=== PATIENT | female | born 1970 | race Caucasian/White ===

== ENCOUNTER 2016-12-14 08:34 | Emergency (ER) | payer OTHER ==
[~2016-12-14] VITALS: Wt 93.0 kg
[~2016-12-14 08:34] MED LIST: AZIT500T3 PO; BENA40TA41 PO; CARV25TA79 PO; CYCL-319 PO; HYDR-3672 PO; HYDR-902 PO; LEVO500T72 PO; METO10TA92 PO; ONDA4TAB14 PO; PANT40TA3 PO
[2016-12-14] MEDS ORDERED: SOD CHLORIDE 0.9% 1,000 ML IV STA (10:54)
[2016-12-14] MEDS ORDERED: ONDANSETRON 4 MG INJ IV STA (10:54)
[2016-12-14] MEDS ORDERED: HYDROmorphONE 1 MG/ML SYG IV STA ×3 (10:56→15:08)
--- NOTE | 2016-12-14 11:11 | ERD ---
ER Documentation Chief Complaint Date/Time DATE: 12/14/16 TIME: 11:07 Chief Complaint PELVIC PAIN WITH HEMATURIA HX HEMATURIA HPI Patient is a 46-year-old female who presents with 2 days of gradual onset, constant, burning pain to the suprapubic area associated with dysuria. The patient reports hematuria this morning. She also reports left-sided low back pain, a few episodes of vomiting, and 3 episodes of diarrhea. Denies fever, denies vaginal discharge. Patient states that she was unable to take her antihypertensive medication this morning due to vomiting. On further history the patient discloses that she has been treated for UTI for the last 2 weeks with 3 different antibiotics, and is currently taking Keflex. She also reports history of 2 previous kidney stones. ROS All systems reviewed and are negative except as per history of present illness. Medications Home Meds Active Scripts Ondansetron Hcl* (Zofran*) 4 Mg Tablet, 4 MG PO Q8H Y for NAUSEA AND/OR VOMITING , #15 TAB Prov:HEIKE SHAFER MD 12/14/16 Levofloxacin* (Levaquin*) 500 Mg Tablet, 500 MG PO DAILY for 10 Days, TAB Prov:HEIKE SHAFER MD 12/14/16 Hydrocodone/Acetaminophen ([place] 5-325 Tablet) 1 Each Tablet, 1 TAB PO Q6H Y for PAIN, #20 TAB Prov:HEIKE SHAFER MD 12/14/16 Reported Medications Cyclobenzaprine Hcl* (Cyclobenzaprine Hcl*) 10 Mg Tablet, 10 MG PO Q8 Y for MUSCLE SPASMS, #60 TAB 06/14/16 Carvedilol* (Carvedilol*) 25 Mg Tablet, 25 MG PO BID, #60 TAB 06/14/16 Hydralazine Hcl* (Hydralazine Hcl*) 50 Mg Tab, 50 MG PO BID, #90 TAB 06/14/16 Benazepril Hcl* (Benazepril Hcl*) 40 Mg Tablet, 40 MG PO DAILY, #30 TAB 06/14/16 Discontinued Scripts Ondansetron (Ondansetron Odt) 4 Mg Tab.rapdis, 4 MG PO Q6H Y for NAUSEA AND/OR VOMITING, #10 TAB Prov:LIAT PORRAS 07/22/16 Metoclopramide* (Reglan*) 10 Mg Tablet, 10 MG PO Q6 Y for NAUSEA AND/OR VOMITING , #15 TAB Prov:CONRAD TOUSSAINT MD 07/21/16 Azithromycin* (Zithromax*) 500 Mg Tablet, 500 MG PO DAILY for 7 Days, TAB Prov:CONRAD TOUSSAINT MD 07/21/16 Hydrocodone/Acetaminophen ([place] 10-325 Tablet) 1 Each Tablet, 1 TAB PO Q6H Y for PAIN, #15 TAB Prov:CONRAD TOUSSAINT MD 07/21/16 Levofloxacin* (Levaquin*) 500 Mg Tablet, 500 MG PO DAILY for 7 Days, TAB Prov:ADAM ACEVEDO 07/16/16 Pantoprazole* (Protonix*) 40 Mg Tablet.dr, 40 MG PO DAILY, #20 TAB Prov:LIAT PORRAS 06/14/16 Allergies Allergies: Coded Allergies: albuterol (Verified Allergy, Intermediate, 07/22/16) ipratropium (Verified Allergy, Intermediate, 07/22/16) morphine (Verified Allergy, Mild, 07/22/16) Iodinated Contrast Media - IV Dye (Unverified Allergy, Unknown, 07/22/16) ampicillin (Verified Allergy, Unknown, 07/22/16) doxycycline (Unverified Allergy, Unknown, 07/22/16) ibuprofen (Unverified Allergy, Unknown, 07/22/16) ketorolac (Unverified Allergy, Unknown, 07/22/16) nitrofurantoin (Unverified Allergy, Unknown, 07/22/16) promethazine (Unverified Allergy, Unknown, 07/22/16) sulfamethoxazole (Verified Allergy, Unknown, 07/22/16) trimethoprim (Verified Allergy, Unknown, 07/22/16) PMhx/Soc Past medical history: Lupus, cervical cancer, hypertension, kidney stones Past surgical history: Appendectomy, cholecystectomy, right oophorectomy, C- section Social history: Denies tobacco or alcohol History of Surgery: Yes (cholecystectomy, RIGHT OVARY, ,APPENDECTOMY) Anesthesia Reaction: No Hx Neurological Disorder: No Hx Respiratory Disorders: No Hx Cardiac Disorders: Yes (HTN) Hx Psychiatric Problems: No Hx Miscellaneous Medical Probl: Yes (DVT, LUpus. Cervix CA) Hx Alcohol Use: No Hx Substance Use: No Hx Tobacco Use: Yes Smoking Status: Current some day smoker Fmx Family History: No coronary disease, No diabetes Physical Exam Vitals Vital Signs Date Time Temp Pulse Resp B/P Pulse Ox O2 Delivery O2 Flow Rate FiO2 12/14/16 11:37 88 18 142/74 98 Room Air 12/14/16 08:38 98.0 97 18 214/104 99 Physical Exam Const: Alert, no acute distress Head: Atraumatic Eyes: Normal Conjunctiva, no pallor, no icterus ENT: Normal External Ears, Nose and Mouth. Tacky mucous membranes Neck: Full range of motion. No meningismus. Resp: Clear to auscultation bilaterally, no wheezes, no rales Cardio: Tachycardia, regular rhythm, no murmurs Abd: Soft, tender in suprapubic area only, no rebound, no guarding, non distended. Normal bowel sounds Skin: No petechiae or rashes Back: No midline or flank tenderness Ext: No cyanosis, or edema Neur: Awake and alert, cranial nerves II through XII intact bilaterally, strength and sensation intact in 4 extremities Psych: Normal Mood and Affect Result Diagram: 12/14/16 1105 12/14/16 1105 Results 24 hrs Laboratory Tests Test 12/14/16 11:05 White Blood Count 6.310^3/ul Red Blood Count 4.7710^6/ul Hemoglobin 11.9g/dl Hematocrit 38.8% Mean Corpuscular Volume 81.3fl Mean Corpuscular Hemoglobin 24.9pg Mean Corpuscular Hemoglobin Concent 30.7g/dl Red Cell Distribution Width 16.3% Platelet Count 05709^3/UL Mean Platelet Volume 9.7fl Neutrophils % 71.1% Lymphocytes % 18.3% Monocytes % 10.4% Eosinophils % 0.0% Basophils % 0.0% Nucleated Red Blood Cells % 0.0/100WBC Neutrophils # 4.510^3/ul Lymphocytes # 1.210^3/ul Monocytes # 0.710^3/ul Eosinophils # 0.010^3/ul Basophils # 0.010^3/ul Nucleated Red Blood Cells # 0.010^3/ul Prothrombin Time 12.9Sec Prothrombin Time Ratio 1.0 INR International Normalized Ratio 0.97 Urine Color RED Urine Clarity CLEAR Urine pH 6.5 Urine Specific [place] 1.020 Urine Ketones NEGATIVE Urine Nitrite POSITIVE Urine Bilirubin NEGATIVE Urine Urobilinogen 0.2 E.U./dL Urine Leukocyte Esterase TRACE Urine Microscopic RBC >200/HPF Urine Microscopic WBC 2-5/HPF Urine Squamous Epithelial Cells FEW Urine Bacteria MODERATE Urine Hemoglobin 3+ Urine Glucose NEGATIVE% Urine Total Protein 2+ Sodium Level 142mmol/L Potassium Level 3.1mmol/L Chloride Level 100mmol/L Carbon Dioxide Level 30mmol/L Anion Gap 15 Blood Urea Nitrogen 11mg/dl Creatinine 0.66mg/dl Glucose Level 108mg/dl Calcium Level 9.1mg/dl Serum HCG, Qualitative NEGATIVE Current Medications Medications (Trade) Dose Ordered Sig/Katt Route PRN Reason Start Time Stop Time Status Last Admin Dose Admin Sodium Chloride (NS) 1,000 ml @ 1,000 mls/hr Q1H STAT IV 12/14/16 10:54 12/14/16 11:53 DC 12/14/16 11:22 Ondansetron HCl (Zofran Inj) 4 mg ONCE STAT IV 12/14/16 10:54 12/14/16 10:56 DC 12/14/16 11:22 Hydromorphone HCl (Dilaudid) 0.5 mg ONCE STAT IV 12/14/16 10:56 12/14/16 10:58 DC 12/14/16 11:22 Atenolol (Tenormin) 50 mg ONCE ONCE PO 12/14/16 11:30 12/14/16 11:31 DC Lisinopril 20 mg 20 mg ONCE ONCE PO 12/14/16 11:30 12/14/16 11:31 DC Ceftriaxone Sodium (Rocephin) 50 ml @ 100 mls/hr ONCE ONCE IVPB 12/14/16 13:00 12/14/16 13:29 DC 12/14/16 13:44 Potassium Chloride (Potassium Chloride Pwd/Soln) 40 meq ONCE ONCE PO 12/14/16 13:00 12/14/16 13:01 DC 12/14/16 13:04 Hydromorphone HCl (Dilaudid) 0.5 mg ONCE STAT IV 12/14/16 12:53 12/14/16 12:58 DC 12/14/16 13:04 Procedures/MDM Patient is a 46-year-old female with 2 weeks of ongoing urinary tract infection despite 3 courses of antibiotics. She presents with dysuria and hematuria, as well as flank pain. She has a relatively benign abdominal exam with tenderness located in the suprapubic region, but does have left-sided CVA tenderness. Patient has a history of kidney stones and significant red blood cells on UA, but only 2-5 WBCs. The patient does have a positive nitrite which is suggestive of UTI. CT scan is pending to exclude kidney stone. Patient denies vaginal discharge or bleeding. Patient signed out to Dr. Almendarez, who will review the CT scan results. I would consider admission if the patient does indeed have a kidney stone due to possibility of infected stone. If CT scan is negative, I believe the patient can be discharged home with levofloxacin, given poor response to Keflex. I will also give her prescriptions for [place] and Zofran. Urine culture was sent. Patient does not have fever or other vital sign abnormalities. The patient did present with significant hypertension in the setting of not taking her medications today. She was given Zofran and her home meds, and her blood pressure has significantly normalized. Patient was given oral repletion for hypokalemia. Departure Diagnosis: Primary Impression: Pyelonephritis Additional Impression: Hypokalemia Condition: Stable HEIKE SHAFER MD Dec 14, 2016 11:11
[2016-12-14] MEDS ORDERED: LISINOPRIL 20 MG TAB PO ONE (11:30)
[2016-12-14] MEDS ORDERED: ATENOLOL 50 MG TAB PO ONE (11:30)
[2016-12-14 11:34] LABS: ADD UMIC YES; URINE BILIRUBIN (Dip) NEGATIVE (NEGATIVE); URINE BLOOD (Dip) 3+ (NEGATIVE); URINE COLOR RED (YELLOW); URINE GLUCOSE (Dip) NEGATIVE (NEGATIVE); URINE KETONES (Dip) NEGATIVE (NEGATIVE); URINE LEUKOCYTE ESTERASE (Dip) TRACE (NEGATIVE); URINE NITRITE (Dip) POSITIVE (NEGATIVE); URINE TOTAL PROTEIN (Dip) 2+ (NEGATIVE); URINE UROBILINOGEN (Dip) 0.2 E.U./dL (0.1-1.0)
[2016-12-14 11:53] LABS: ADD SCAN DIFF NO
[2016-12-14 11:58] LABS: SQUAMOUS EPITHELIAL CELL,UR FEW; URINE RBCS >200 /HPF (0)
[2016-12-14 11:59] LABS: BACTERIA,URINE MODERATE
[2016-12-14 12:06] LABS: INR 0.97; PROTIME 12.9 Sec (12.2-14.2)
[2016-12-14 12:08] LABS: POTASSIUM 3.1 mmol/L (3.5-5.1)
[2016-12-14 12:09] LABS: HEMATOCRIT 38.8 % (37.0-47.0); HEMOGLOBIN 11.9 g/dl (12.0-16.0); LYMPHOCYTES # 1.2 10^3/ul (0.8-2.9); LYMPHOCYTES % 18.3 % (15.0-51.0); MEAN CORPUSCULAR HEMOGLOBIN 24.9 pg (29.0-33.0); MEAN CORPUSCULAR HGB CONC 30.7 g/dl (32.0-37.0); MEAN CORPUSCULAR VOLUME 81.3 fl (82.0-101.0); MEAN PLATELET VOLUME 9.7 fl (7.4-10.4); MONOCYTE # 0.7 10^3/ul (0.3-0.9); MONOCYTES % 10.4 % (0.0-11.0); NEUTROPHIL # 4.5 10^3/ul (1.6-7.5); NEUTROPHILS % 71.1 % (39.0-77.0); PLATELET COUNT 191 10^3/UL (140-415); RED BLOOD COUNT 4.77 10^6/ul (4.20-5.40); RED CELL DISTRIBUTION WIDTH 16.3 % (11.5-14.5); WHITE BLOOD COUNT 6.3 10^3/ul (4.8-10.8)
[2016-12-14 12:10] LABS: CREATININE 0.66 mg/dl (0.44-1.00)
[2016-12-14 12:11] LABS: CALCIUM 9.1 mg/dl (8.4-10.2)
[2016-12-14] MEDS ORDERED: CEFTRIAXONE 2 GM/50 ML (PMX) 50 ML IVPB ONE (13:00)
[2016-12-14] MEDS ORDERED: POTASSIUM CHLORIDE 20 MEQ POWDER FOR ORAL SOLN PO ONE (13:00)
[2016-12-14] MEDS ORDERED: HYDR-906 PO (14:41)
[2016-12-14] MEDS ORDERED: LEVO500T72 PO (14:41)
[2016-12-14] MEDS ORDERED: ONDA4TAB8 PO (14:41)
[2016-12-14 15:08] VITALS: BP 137/82; PULSE 91; RESP 18
--- NOTE | 2016-12-14 15:16 | RADRPT ---
PROCEDURE: CT Abdomen and Pelvis without contrast. CLINICAL INDICATION: Flank pain/hematuria TECHNIQUE: CT scan of the abdomen and pelvis without contrast was performed. The patient was scann ed without intravenous contrast. Coronal and sagittal reformatted images were obtained from the axi al source images. Use of iterative reconstruction technique was employed. Images were reviewed on a high-resolution PACS workstation. images. The calculated radiation dose measures 1033.77 mGy centime ters. The CTDI measures 18.18 mGy. One or more of the following dose reduction techniques were used: - Automated exposure control. - Adjustment of the mA and/or kV according to patient size . - Use of iterative reconstruction technique. Images were reviewed on a high-resolution PACS workstation COMPARISON: 07/22/2016 FINDINGS: CT abdomen: The lung bases are clear. The heart size is normal, without pericardial thickening or effusion. Th e liver is decreased in size and density without focal mass or intrahepatic biliary dilatation. The spleen is normal in size and homogeneous in density. The stomach is partially collapsed, but is gr ossly unremarkable. The pancreas as visualized is normal. The gallbladder is absent. The biliary tree is otherwise unremarkable and there is no evidence for biliary dilatation. The adrenal glands are symmetric and normal. There are 2, sub-centimeter dense oval shaped foci in the left mid pole of the kidney measuring less than 1 cm too small to characterize study. These were present on the p rior study and are likely dense cysts without interval change. The aorta is of normal caliber. Aortic vascular calcifications are present. There is no retroperit matt lymphadenopathy. The kit hepatis region is clear. The bowel and mesentery, as visualized, are equally unremarkable. An IVC filter is present. CT pelvis: The small bowel loops situated within the pelvis are unremarkable. The pelvic organs are normal. T he pelvic sidewalls and inguinal regions are clear. The sigmoid colon and rectum are not thickened or dilated. The patient has undergone prior appendectomy.. No mass, lymphadenopathy, or free fluid is seen. No acute inflammation is seen. The surrounding osseous structures are remarkable for degenerative spondylosis of the spine. No ost eolytic or osteoblastic lesion is detected. IMPRESSION: 1. No evidence for nephroureterolithiasis or hydroureteronephrosis. 2. Redemonstration of the small dense foci within the left renal parenchyma, too small to characteri ze on CT, but likely represent a dense cysts and are unchanged. 3. Evidence of prior cholecystectomy and appendectomy. 4. Unchanged appearance of the IVC filter. 5. Atherosclerotic vascular calcifications. 6. Fatty liver. RPTAT: UU .Brandon Kiran MD, Date Time Electronically viewed and signed by .Brandon Kiran MD, on 12/14/2016 15:15 .d/
== END 2016-12-14 16:10 | disposition home or self-care (01) ==
LOC: E/R 08:34
DX: N12 Tubulo-interstitial nephritis, not specified as acute or chronic (principal); E87.6 Hypokalemia; I10 Essential (primary) hypertension; F17.210 Nicotine dependence, cigarettes, uncomplicated; E11.9 Type 2 diabetes mellitus without complications; Z85.41 Personal history of malignant neoplasm of cervix uteri
CPT/HCPCS: 36415; 74176; 80048; 81001; 84703; 85025; 85610; 87086; 96374; 96375; 96376; J0696; J1170; J2405; J7030; Z7502; Z7610; 81003